=== PATIENT | female | born 1945 | race Caucasian/White ===

== ENCOUNTER → 2019-02-11 | Outpatient (CLI) | payer MEDICARE ==
[~2019-02-11] MED LIST: REGADENOSON 0.4 MG/5 ML SYR IV ONE
--- NOTE | 2019-02-15 20:40 | Myoview Stress Test ---
DATE OF STUDY: 02/11/2019 10:02:00 Stress Test - Treadmill ONLY Nuclear imaging was performed at rest and stress followed along with Lexiscan infusion for stress imaging. FINDINGS: The stress imaging shows mild decrease in tracer uptake in the apex of the left ventricle. Normal rest imaging, unable to gate images. CONCLUSIONS: 1. Abnormal nuclear SPECT study with mild apical ischemia. 2. Unable to calculate left ventricle ejection fraction. MD JORGE Martinez/MODL /[id number]
== END ==
LOC: NM 09:51
PROVIDERS: ATTEND Internal Medicine Cardiovascular Disease
DX: R94.31 Abnormal electrocardiogram [ECG] [EKG] (principal)
CPT/HCPCS: 78452; 93017; A9502; J2785

== ENCOUNTER → 2019-03-03 | Day surgery (SDC) | payer MEDICARE ==
[2019-02-28 13:27] LABS: BASOPHILS # (AUTO) 0.1 (0.0-0.1); BASOPHILS % 0.7 % (0.0-1.0); EOSINOPHILS # (AUTO) 0.1 (0.0-0.4); EOSINOPHILS % 1.6 % (0.0-6.0); HEMATOCRIT 37.4 % (34.2-44.1); HEMOGLOBIN 13.5 g/dL (12.0-16.0); LYMPHOCYTES # (AUTO) 3.4 (1.0-3.2); LYMPHOCYTES % 49.7 % (18.0-39.1); MEAN CORPUSCULAR HEMOGLOBIN 31.6 pg (28-32); MEAN CORPUSCULAR HGB CONC 36.1 g/dL (31-35); MEAN CORPUSCULAR VOLUME 87.6 fL (81-99); MONOCYTES # (AUTO) 0.5 (0.2-0.8); MONOCYTES % 7.7 % (4.4-11.3); NEUTROPHILS # (AUTO) 2.7 (2.1-6.9); NEUTROPHILS % 40.2 % (38.7-80.0); PLATELET COUNT 115 x10e3/uL (140-360); RED BLOOD COUNT 4.27 x10e6/uL (3.6-5.1); RED CELL DISTRIBUTION WIDTH 12.7 % (11.7-14.4)
[2019-02-28 14:32] LABS: ALANINE AMINOTRANSFERASE 36 IU/L (0-55); ALBUMIN 3.9 g/dL (3.5-5.0); ALKALINE PHOSPHATASE 121 IU/L (40-150); BLOOD UREA NITROGEN 17 mg/dL (7-26); BUN/CREATININE RATIO 22 (6-25); CALCIUM 9.6 mg/dL (8.4-10.2); CARBON DIOXIDE 21 mmol/L (22-29); CHLORIDE 107 mmol/L (98-107); CREATININE, SERUM 0.78 mg/dL (0.57-1.11); EST GLOMERULAR FILTRATION RATE > 60 ML/MIN (60-); GLUCOSE 94 mg/dL (74-118); SODIUM 136 mmol/L (136-145)
[2019-03-03] VITALS (10 sets, daily range): BP systolic 117–150; BP diastolic 61–100
[~2019-03-03] VITALS: Ht 167.6 cm; Wt 68.9 kg
[~2019-03-03] MED LIST changes: +ALPRAZOLAM 0.5 MG TAB ONE; +DIPHENHYDRAMINE HCL 25 MG CAP ONE; +FENTANYL CITRATE/PF 100MCG/2 ML INJ ONE; +HARVONI PO; +HEPARIN SOD (PORCINE) 1000 UNIT/ML 30ML ONE; +HEPARIN SOD/SOD CHLORIDE 1,000 ML ONE; +IOPAMIDOL 370 MG/ML 200 ML INFUS..BTL INJ ONE; +LIDOCAINE HCL 2% LOCAL 20 ML VIAL ONE; +LISINOPRIL10 MG PO; +MIDAZOLAM HCL 2 MG/2 ML VIAL ONE; +NITROGLYCERIN/D5W 200 MCG/ML 250 ML ONE; -REGADENOSON 0.4 MG/5 ML SYR IV ONE; +SODIUM CHLORIDE 0.9% 1000ML 1,000 ML ONE; +VERAPAMIL HCL 2.5 MG/ML 2 ML VIAL ONE
--- OUTSIDE RECORDS SUMMARY | 2019-03-03 08:30 | XMS REPORT ---
Author Author [facility] Address Unknown Phone Unavailable Care Team Providers Care Production Operations Inspector Name Role Phone Unavailable Unavailable Payers Payer Name Policy Type Policy Number Effective Date Expiration Date Problems This patient has no known problems. Allergies, Adverse Reactions, Alerts Allergy Name Allergy Type Status Severity Reaction(s) Onset Date Inactive Date Treating Clinician Comments No Known Allergies DA Active U 2016-09-21 00:00:00 Medications This patient has no known medications.
--- NOTE | 2019-03-03 10:10 | NUR ---
1010am Received pt ambulatory with cane to Rm #9. Identifierx2. Prepped in usual fashion at bedside. Ox4 Denies Cp or Sob. Iv started x4 #22 left wrist. Positional requires slow push 1000ns at bedside. Please keep b/p cuff to left ankle. Pre Medicate as ordered Axanax 0.5 and Benadryl 50 po. Pt has call light at bedside. Bed in low position Call light at bedside. ds/rn
--- NOTE | 2019-03-03 12:01 | NUR ---
1201 Received handoff Report Yelitza Brown. [facility] no fix Dr Rockwell Left iv removed due to malfunction and 2x2 dressing with Coban. rt venous sheath remain in place with NS infusing at KVO. Arterial sheath removed in laborer hoisting and intact Vascade dressing w/o hematoma. Venous sheath intact with dressing dry and intact.back to baseline orientation x4 Respiration shallow and regular Abdomen soft and non tender Denies necessity to defecate or urinate. Bilateral ppx4 PT/Dp. present. taught POC and signed dc papers. Knows importance of f/o care. 1211 Sheath pull per Yelitza Brown to veinous line tolerated well 2x2 dressing intact. Held 10min No gross issues pain pallor pressure of dysrhythmia. 1400 dc home Tolerating po intake to car per w/c with residential driver to get home .Aware of importance of f/o care.Has copies of dc papers. No gross issues pain pallor pressure or dysrhythmia. Denies CP or SOB Rt groin site intact and ppx4 present. ds/rn
--- NOTE | 2019-03-03 14:06 | Operative Report ---
DATE OF PROCEDURE: 03/03/2019 SURGEON: Clement Rockwell DO PROCEDURES PERFORMED: 1. Selective coronary angiography x2. 2. Left heart catheterization. 3. Conscious sedation, 26 minutes. PREPROCEDURE DIAGNOSIS: Abnormal stress test. POSTPROCEDURE DIAGNOSIS: No significant coronary artery disease. ESTIMATED BLOOD LOSS: Less than 10 mL. SPECIMENS REMOVED: None. PROCEDURE IN DETAIL: After informed consent was obtained, the patient was brought to the cardiac catheterization laboratory in a fasting and nonsedated state. Bilateral groins were prepped and draped in the usual sterile fashion. 2% lidocaine was instilled over the right groin for local anesthesia. Venous access was obtained with a 4-Bhutanese catheter, 6-Bhutanese catheter was placed in the right common femoral artery. Diagnostic selective coronary angiography was performed using a JL4 and 3DRC catheter. The 3DRC catheter was used to enter the left ventricle and hemodynamic parameters were obtained. The patient tolerated the procedure well no immediate complications. Hemostasis was achieved via Vascade device. The patient was transferred back to room in stable condition. PROCEDURE FINDINGS: 1. Left main coronary artery is patent without significant disease. 2. Left anterior descending coronary artery is patent with mild luminal irregularities. The LAD tapers down near the left ventricular apex. 3. Left circumflex coronary artery provides three obtuse marginal vessels with mild luminal irregularities. 4. Right coronary artery is a dominant vessel and provides to posterior descending coronary artery. 5. The left ventricular end-diastolic pressure is 20 mmHg with no aortic valve gradient present upon pullback. IMPRESSION: No significant coronary artery disease. RECOMMENDATIONS: Continue risk factor modification and medical management. Clement Rockwell DO BM/MODL /[id number]
== END | disposition home or self-care (01) ==
LOC: CATH LAB 08:27
PROVIDERS: ATTEND Internal Medicine Cardiovascular Disease
DX: I20.8 Other forms of angina pectoris (principal); I48.91 Unspecified atrial fibrillation; R94.39 Abnormal result of other cardiovascular function study; I10 Essential (primary) hypertension; E78.5 Hyperlipidemia, unspecified; R94.31 Abnormal electrocardiogram [ECG] [EKG]; K75.9 Inflammatory liver disease, unspecified; Z72.0 Tobacco use; Z01.812 Encounter for preprocedural laboratory examination
CPT/HCPCS: 36415; 80053; 85025; 93458; J1644; J2001; J2250; J7030; Q9967; C1760; C1766; C1769; C1887